=== PATIENT | female | born 1985 | race Caucasian/White ===

== ENCOUNTER 2022-05-08 15:55 | Emergency (ER) | payer BC, SELFPAY ==
[2022-05-08 16:07] VITALS: BP 127/77; PULSE 83; RESP 16; TEMP 36.6; O2SAT 100
--- NOTE | 2022-05-08 16:11 | ED.NAVMDI ---
HPI - Nausea/Vomiting/Diarrhea General Chief complaint: Nausea/Vomiting/Diarrhea Stated complaint: nausea Time Seen by Provider: 05/08/22 16:11 Source: patient Mode of arrival: ambulatory Limitations: no limitations History of Present Illness HPI Narrative: 36-year-old female presents with complaint of nausea with . States she recently found that she was from a no other urgent care after she went there with flu-like symptoms. Thinks that she is approximately 6 weeks . Has a telehealth visit with her OBGYN in 3 days. Miss the last 3 days of work due to nausea. States she is intermittently vomiting But is able to keep down food and water. Reports that she cannot handle the nausea and is here to get medication for it. 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 She has no complaints of abdominal cramping or vaginal bleeding today. All systems reviewed and negative except as noted above. Related Data Allergies Allergy/AdvReac Type Severity Reaction Status Date / Time No Known Allergies Allergy Verified 05/08/22 16:16 Review of Systems Review of Systems: CONSTITUTIONAL: Denies fever, chills, or sweats. EYES: Denies visual changes, redness, or discharge. ENT: Denies rhinorrhea, congestion, sore throat, or otalgia. CARDIOVASCULAR: Denies chest pain, palpitations, or edema. RESPIRATORY: Denies cough or dyspnea. GASTROINTESTINAL: Denies abdominal pain, diarrhea. Reports nausea and vomiting. GENITOURINARY: Denies dysuria or hematuria. SKIN: Denies rash or itching. MUSCULOSKELETAL: Denies back pain, joint pain, or myalgia. NEUROLOGIC: Denies headache, numbness, or weakness. PSYCHIATRIC: Denies anxiety or depression. All other systems reviewed are negative, except as documented in HPI. PMFSH Comments At time of signature, agree with nursing past medical, surgical, social and family history. There is no relevant family history pertinent to the presenting complaint. Exam Narrative: GENERAL: This is a well-nourished, well-developed patient, in no apparent distress. HEAD: normocephalic, atraumatic. EYES: PERRL. Sclera clear/white. Vision is grossly intact. EARS: External ears normal NOSE: External nose normal NECK: Neck supple, non-tender without lymphadenopathy, masses or thyromegaly. CARDIOVASCULAR: Regular rate and rhythm without murmurs, gallops, or rubs. RESPIRATORY: Clear to auscultation. Breath sounds equal bilaterally. No wheezes, rales, or rhonchi. SKIN: warm, Dry, intact with no suspicious lesions or rash, good texture and turgor. NEURO: awake, alert, and oriented to person, place and time. There were no obvious focal neurologic abnormalities. EXTREMITIES: No joint tenderness, effusion, or edema noted. Course Course Level of Care: Express Care Visit Vital Signs Vital signs: Vital Signs Temperature 36.6 C 05/08/22 16:07 Pulse Rate 83 05/08/22 16:07 Respiratory Rate 16 05/08/22 16:07 Blood Pressure 127/77 05/08/22 16:07 Pulse Oximetry 100 05/08/22 16:07 Oxygen Delivery Room Air 05/08/22 16:07 Temperature 36.6 C 05/08/22 16:07 Pulse Rate 83 05/08/22 16:07 Respiratory Rate 16 05/08/22 16:07 Blood Pressure 127/77 05/08/22 16:07 Pulse Oximetry 100 05/08/22 16:07 Oxygen Delivery Room Air 05/08/22 16:07 Reviewed MDM - Nausea/Vomiting/Diarrhea MDM Narrative Medical decision making narrative: Patient is aware of diagnosis, understands and agrees to treatment plan. Anticipatory guidance given. Patient agrees to follow-up as directed and is aware of reasons to seek care at the emergency department. Portions of this record may have been created with voice recognition software Discharge Plan Discharge Clinical Impression: Nausea and vomiting during Patient Disposition: Home, Self-Care Condition: Stable Instructions: Nausea and Vomiting in (ED
== END 2022-05-08 16:23 | disposition home or self-care (01) ==
PROVIDERS: Emergency Provider Nurse Practitioner Family
DX: O21.9 Vomiting of pregnancy, unspecified (principal); Z3A.01 Less than 8 weeks gestation of pregnancy
CPT/HCPCS: 99213; G0463

== ENCOUNTER 2022-12-17 13:03 | Outpatient (CLI) | payer MEDICAID, SELFPAY ==
[2022-12-17 14:24] LABS: Basophils Percent Auto 0.1 % (0.2-1.2); Eosinophils Absolute Auto 0.1 K/mm3 (0-0.3); Eosinophils Percent Auto 0.9 % (0-4.4); Hematocrit 33.8 % (37.0-47.0); Hemoglobin 11.3 g/dL (12.0-15.0); Immature Granulocyte Absolute 0.04 K/mm3 (0.00-0.031); Immature Granulocyte Percent A 0.4 % (0-0.5); Lymphocytes Percent Auto 14.6 % (18.3-44.2); Mean Corpuscular HGB Conc 33.4 g/dl (32-36); Mean Corpuscular Volume 101.8 fl (80-100); Monocytes Absolute Auto 0.6 K/mm3 (0.1-0.6); Monocytes Percent Auto 5.7 % (2.6-8.5); Neutrophils Percent Auto 78.3 % (45.5-73.1); Platelet Count Result 223 k/mm3 (150-375); Red Blood Count 3.32 M/mm3 (4.2-5.4); Red Cell Distribution Width 14.4 % (11.5-14.5); White Blood Count 10.3 K/mm3 (4.5-10.0)
[2022-12-17 15:18] LABS: HIV 1/2 Ab P24 Ag Result Negative (Negative)
[2022-12-17 15:51] LABS: Hepatitis B Surface Antigen Negative (Negative); Rubella IgG Antibody 88.9 IU/ML
[2022-12-18 10:57] LABS: Rapid Plasma Reagin Non-Reactive (NonReactive)
[2022-12-21 12:06] LABS: Varicella IgG Antibody <135.00 Index (>=165.00)
== END 2022-12-17 13:04 | disposition home or self-care (01) ==
LOC: ANHLAB 13:04
PROVIDERS: Visit Provider Student in an Organized Health Care Education/Training Program
DX: Z34.90 Encounter for supervision of normal pregnancy, unspecified, unspecified trimester (principal); Z3A.00 Weeks of gestation of pregnancy not specified
CPT/HCPCS: 36415; 85025; 86592; 86644; 86703; 86747; 86762; 86787; 86850; 86900; 86901; 87086; 87088; 87147; 87340; G0432

== ENCOUNTER 2022-12-29 17:53 | Inpatient (IN) | payer MEDICAID, SELFPAY ==
[2022-12-29 18:10] VITALS: BMI 30.1
--- NOTE | 2022-12-29 18:10 | LDADM ---
This patient, Va Bocanegra, was admitted to Labor/Delivery/Recovery 104 on 12/29/22 at 17:53. Plans for labor, pain management and were discussed with patient. Patient/family oriented to hospital policies and general routines including ID bracelet, bed and alarms, visiting hours, pain management, procedures, bathroom and other care routines, personal items, smoking policy, room service/diet and guest tray routines, infant security routines, and visiting hours. Patient/Family are encouraged to report perceived risks to care and to ask questions if they do not understand what they are told or what they should do. See [facility] for further documentation.
--- NOTE | 2022-12-29 18:14 | P.PNAN_ITS ---
Anes - Eval Pre Procedure Procedure: labor epidural Date/Time: 12/29/22 18:14 Surgeon: luis antonio Preop Diagnosis: pain during labor Pre Op Diagnosis: Induction of Labor Patient Data Age: 37 Gender: F Height: Weight: Allergies Allergy/AdvReac Type Severity Reaction Status Date / Time codeine Allergy Vomiting Verified 12/29/22 14:02 Home Medications Medication Instructions Recorded Confirmed Type vit#24-iron amino acid 1 tablet PO DAILY 12/07/22 12/08/22 History chelat-folic acid 30 mg-975 mcg tablet ferrous sulfate 325 mg (65 mg 325 mg PO DAILY 12/08/22 12/08/22 History iron) tablet (Feosol) Patient hx anesthesia problems: none Family hx anesthesia problems: none Results Review: All pre-operative results and documents have been reviewed as part of the pre- operative evaluation. [facility] Past Medical History Medical History (Updated 12/29/22 @ 18:14 by Susy Holloway CRNA) IUP (intrauterine ), incidental Surgical History Surgical History Status post appendectomy 02/05/2019 Family History Family History Mother Cancer lung cancer Grandparent Cancer Other Diabetes mellitus Social History Social History Smoking packs per day: 0.5 Smoking cigarettes per day: 10.0 Years smoked: 17 Smoking pack-years: 8.50 Smoking status: Current every day smoker Tobacco type: cigarettes Alcohol intake: former Substance use: current Substance use type: marijuana Lack of Transportation: No Lack of Food: Never True Current Housing: I Have Housing Concerned About Future Housing: No Difficulty Paying Gas/Electric Bills: No Difficulty Paying for Meds: No Currently Unemployed: YES Education: High School Diploma/GED Difficulty w/ Childcare or Family Care: No Living arrangements: with family Additional living arrangements comments: Occupation/Education: unemployed Gender identity (if verbalized by the patient): Female Sexual Orientation (if Verbalized by the Patient): Straight or Heterosexual Spiritual care concerns: No Exam Day of Procedure 12/29/22 18:14
[2022-12-29] MEDS: DINOPROSTONE 10 MG VAG INSERT VAGINAL (19:00)
[2022-12-29 19:04] VITALS: BP 129/78; PULSE 79; RESP 16; TEMP 36.6
[2022-12-29 19:06] LABS: Basophils Percent Auto 0.2 % (0.2-1.2); Eosinophils Absolute Auto 0.1 K/mm3 (0-0.3); Eosinophils Percent Auto 0.8 % (0-4.4); Hematocrit 34.1 % (37.0-47.0); Hemoglobin 11.3 g/dL (12.0-15.0); Immature Granulocyte Absolute 0.06 K/mm3 (0.00-0.031); Immature Granulocyte Percent A 0.5 % (0-0.5); Lymphocytes Absolute Auto 1.62 K/mm3 (0.9-3.2); Lymphocytes Percent Auto 13.8 % (18.3-44.2); Mean Corpuscular HGB Conc 33.1 g/dl (32-36); Mean Corpuscular Hemoglobin 33.6 pg (26-34); Mean Corpuscular Volume 101.5 fl (80-100); Mean Platelet Volume 11.4 fl (7.4-10.4); Monocytes Absolute Auto 0.6 K/mm3 (0.1-0.6); Monocytes Percent Auto 5.1 % (2.6-8.5); Neutrophils Absolute Auto 9.4 K/mm3 (1.3-6.7); Neutrophils Percent Auto 79.6 % (45.5-73.1); Platelet Count Result 224 k/mm3 (150-375); Red Blood Count 3.36 M/mm3 (4.2-5.4); Red Cell Distribution Width 14.6 % (11.5-14.5); White Blood Count 11.8 K/mm3 (4.5-10.0)
[2022-12-29 23:25] VITALS: BP 126/84; PULSE 66; RESP 16; TEMP 36.5
[2022-12-30] VITALS (163 sets, daily range): BP systolic 104–151; BP diastolic 57–102; PULSE 54–195; RESP 15–16; TEMP 36.2–36.6; O2SAT 87–100
[2022-12-30] MEDS: NICOTINE (*PBKC) 7 MG PATCH 1 PATCH TRANSDERM (05:15)
--- NOTE | 2022-12-30 07:24 | WPDHPUPDATE1 ---
History and Physical Update Update Date/Time: 12/30/22 07:24 37 yo G1 at 40w3d who presents for elective IOL. Pt is complicated by advanced maternal age, tobacco use, and late transfer of care. History and Physical has been reviewed, including an updated exam of the patient. There are NO changes in the patient's condition. Risks, benefits, and alternatives have been discussed and questions answered. Patient agrees to proceed with procedure. A/P: admit to L&D routine admission orders labs reviewed Rh+ GBS neg continuous EFM plan for cervidil IOL
[2022-12-30] MEDS: OXYTOCIN 30 UNITS/NS 500 ML 30 UNITS/500 ML BAG IV CONT (08:20)
[2022-12-30] MEDS: LACTATED RINGERS 1,000 ML 125 ML IV CONT ×3 (08:20→16:23)
[2022-12-30] MEDS: fentaNYL CITRATE INJ (*CRX) 100 MCG/2 ML VIAL 50 MCG IV PUSH (08:21)
[2022-12-30 10:49] LABS: Rapid Plasma Reagin Non-Reactive (NonReactive)
--- NOTE | 2022-12-30 17:24 | PM.OBPRVD ---
OB - Delivery Note Procedure Procedure: Patient pushed for a spontaneous vaginal delivery. The fetus was delivered atraumatically and placed on the maternal abdomen. The cord was clamped and cut after 1 minute of life. The cord was double clamped and cut and a segment of cord was collected for cord gases. Cord blood was collected for blood type and Coomb's testing. The placenta delivered spontaneously and was noted to be intact. The perineum was inspected and there was a 2nd degree perineal laceration. The laceration was repaired with 2-0 vicryl in the usual fashion. The uterus was firm and good hemostasis was noted. The patient and fetus were stable in the delivery room. Induction method: Per Cervidil Protocol Delivery augmentation: Rupture of Membranes and Pitocin Delivery monitor: External FHT Route of delivery: Episiotomy description: None Laceration Description: Perineal - 2nd Degree Delivery repair: vicryl Specimen: No Quantitative Blood Loss (ml): 350 Anesthesia type: Epidural Disposition: Floor () Complications: No immediate complications Baby Date of : 12/30/22 Time of : 17:04 Weeks of gestation at delivery: 40 gender: Female Weight (pounds): 6 Weight (ounces): 13 presentation: vertex position: Right Occiput Anterior Placenta delivery description: Spontaneous Cord Vessel Description: 3 Vessels score one minute: 9 score five minutes: 9 AMG Delivery Billing Delivery Delivery: Delivery Charge
[2022-12-30] MEDS: IBUPROFEN 600 MG TABLET PO (19:42)
[2022-12-30] MEDS: BENZOCAINE 20% AER SPR (*SP) 56 GM CAN 1 SPRAY TOPICAL (19:52)
[2022-12-30] MEDS: WITCH HAZEL 40 PADS 1 PAD TOPICAL (19:53)
[2022-12-31 03:00] VITALS: BP 123/78; PULSE 72; RESP 18; TEMP 36.5; O2SAT 100
[2022-12-31] MEDS: IBUPROFEN 600 MG TABLET PO ×3 (03:05→16:27)
[2022-12-31 03:45] LABS: Hematocrit 29.6 % (37.0-47.0); Hemoglobin 9.8 g/dL (12.0-15.0)
[2022-12-31 07:40] VITALS: BP 115/68; PULSE 68; RESP 16; TEMP 36.6; O2SAT 100
[2022-12-31] MEDS: MULTIVIT/MIN/PREN/FOL AC/IRON TABLET 1 TAB PO (08:43)
[2022-12-31] MEDS: POLYSACCHARIDE IRON COMPLEX 150 MG CAPSULE PO ×2 (08:43→16:26)
[2022-12-31] MEDS: DOCUSATE SODIUM 100 MG CAPSULE PO ×2 (08:43→16:27)
[2022-12-31] MEDS: NICOTINE (*PBKC) 7 MG PATCH 1 PATCH TRANSDERM (08:44)
--- NOTE | 2022-12-31 09:11 | WPDANLDPN2 ---
Anes-Prog Note L&D Date/Time: 12/31/22 09:11 Comfortable throughout: labor and delivery Neuraxial method: epidural Epidural/Spinal procedure site: clean & non-tender Neuro status: Neuro function grossly intact. Cardiovascular status: normal Respiratory status: normal Airway patency: baseline Mental status: baseline Post-Op hydration status: normal Vital Signs: Last Vital Signs Temp 97.9 F 12/31/22 07:40 Pulse 68 12/31/22 07:40 Resp 16 12/31/22 07:40 BP 115/68 12/31/22 07:40 Pulse Ox 100 12/31/22 07:40 O2 Del Method Room Air 12/29/22 18:10 Pain score (VAS): 0 I/O: Intake & Output 12/30/22 12/31/22 12/31/22 23:59 07:59 15:59 Intake Total 1000 Output Total 80 Balance 920 Post-procedural complaints: none Patient feedback: Patient satisfied with anesthetic care.
--- NOTE | 2022-12-31 11:23 | PM.OBDSVD ---
DS: Admitting Diagnosis Discharge Date 12/31/22 Admitting Diagnosis intrauterine at term DS: Discharge Diagnosis Discharge Diagnosis (1) Normal vaginal delivery: Code(s): O80 - Encounter for full-term uncomplicated delivery Status: Acute OB - DS: Summary OB Procedures : None OB Procedures Intrapartum: Spontaneous Vag Delivery OB Procedures: : None Peripartum Data Infant Delivery Method: Natural Vaginal Laceration Description: Perineal - 2nd Degree complications: none Status at Discharge Functional status at discharge: independent ambulation Overall status at discharge: patient is back to baseline Time Spent with Patient Time attestation: Total time spent providing and/or coordinating discharge services: Time spent: Less than 30 minutes Exam Const: General: comfortable and no acute distress Resp: Effort & Inspection: normal respiratory effort Auscultation: clear to auscultation bilaterally Cardio: Rate: regular rate GI: GI Palp: Yes Soft to palpation Auscultation: normal bowel sounds Other: Fundus firm below umbilicus Psych: Appearance: grossly normal Mental Status: mental status grossly normal Affect: normal affect DS: Data Data Completed and Pending Labs on day of discharge: Labs from last 24 hours 12/31/22 03:12 Hgb 9.8 L Hct 29.6 L Discharge Plan Discharge Discharging Clinician: Ishaan Castle Patient Disposition: Home, Self-Care Activity: as tolerated and pelvic rest Diet: regular Patient Instructions: Antibiotic Form, Vaginal Delivery (DC) Stand Alone Forms: General Discharge Information Follow-up/Referrals: Ishaan Castle MD [Physician] - Discharge Medications: New acetaminophen 500 mg tablet 500 mg PO Q6H PRN (Reason: pain) Qty: 30 0RF ibuprofen 600 mg tablet 600 mg PO Q6H PRN (Reason: pain) Qty: 30 0RF Continued ferrous sulfate [Feosol] 325 mg (65 mg iron) tablet 325 mg PO DAILY Complete 30-975 mg-mcg Tablet 1 tablet PO DAILY Date of admission: 12/29/22 17:53 Primary Care Provider: PHYSICIAN,[employer] Admitting Provider: Ishaan Castle Attending physician on admission: Ishaan Castle Condition: Stable
[2022-12-31 11:54] VITALS: BP 103/72; PULSE 86; RESP 16; TEMP 36.4; O2SAT 100
--- NOTE | 2022-12-31 18:42 | PC.NURSE ---
Patient viewed the discharge video Mother & Baby Care, The First Two Weeks . Patient was given the opportunity and encouraged to ask questions. Patient verbalized understanding of information shared and has been given the mother/baby guide for home reference.
[2023-01-01 13:59] VITALS: BP 119/63; PULSE 75; RESP 18; TEMP 36.6; O2SAT 98
== END 2022-12-31 18:37 | disposition home or self-care (01) | DRG 560 ==
LOC: ANHLDR 17:57 → ANHOB2 12-30 19:47
PROVIDERS: Admitting Provider Student in an Organized Health Care Education/Training Program; Visit Provider Student in an Organized Health Care Education/Training Program
DX: O70.1 Second degree perineal laceration during delivery (principal); Z37.0 Single live birth; Z3A.40 40 weeks gestation of pregnancy
CPT/HCPCS: 36415; 85014; 85018; 85025; 86592; 86850; 86900; 86901; A9270; J2590; J2795; J3010; J7120